=== PATIENT | male | born 1980 | race Caucasian/White ===

== ENCOUNTER → 2021-10-07 | Outpatient (CLI) | payer OTHER ==
[~2021-10-07] MED LIST: GADOTERATE 5 MMOL/10ML VIAL. IVP ONE
--- NOTE | 2021-10-07 10:34 | KCIC ---
EXAMINATION: MRI LEFT LOWER LEG WITH AND WITHOUT IV CONTRAST CLINICAL HISTORY: Lateral left lower leg mass x5 years, increasing in size. Per patient, negative ult rasound today. 2 x 3 cm subcutaneous mass anterior left lower extremity. TECHNIQUE: Multiplanar multisequential images obtained through the left lower leg with and without in travenous contrast. COMPARISON: None FINDINGS: No evidence of soft tissue mass, organized collection, or abnormal contrast enhancement. At the region of interest along the lateral leg denoted by skin markers, there is a slightly prominen t ridge between the posterolateral aspect of the extensor digitorum longus muscle and anterolateral a spect of the peroneus longus muscle. There are also few nonspecific tiny T1 and T2 hypointense foci o verlying the anterolateral peroneus longus muscle at this level. This could be related to remote trau ma or normal variance. Muscle bulk and signal intensity within normal limits. No evidence of acute fracture or suspicious marrow replacing process. IMPRESSION: No evidence of soft tissue mass, organized collection, or abnormal contrast enhancement in the left l eg. Nonspecific slightly prominent ridge between the extensor digitorum longus and peroneus longus muscle s as described which corresponds to the region of interest and may relate to the palpable finding. Electronically signed by: Abdoul Cruz DO (10/07/2021 10:31 AM) [id number]
== END ==
LOC: KCIC MRI 07:54
PROVIDERS: ATTEND Family Medicine Sports Medicine
DX: R22.42 Localized swelling, mass and lump, left lower limb (principal)
CPT/HCPCS: 73720; A9575